=== PATIENT | male | born 1985 | race Caucasian/White ===

== ENCOUNTER 2016-05-05 11:53 | Emergency (ER) | payer BC ==
[~2016-05-05] VITALS: Wt 89.0 kg
--- NOTE | 2016-05-05 14:08 | ERD ---
ER Documentation Chief Complaint Date/Time DATE: 05/05/16 TIME: 14:06 Chief Complaint DIFFICULTY BREATHING SINCE LAST NIGHT AND BILATERAL RIB AREA. NO TRAUMA HPI This a 31-year-old male who presents to the emergency department complaining of shortness of breath and difficulty breathing for the past several days. Patient states he also has pain in his ribs. 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 Patient states he has had an occasional cough. Denies any fevers or chills. ROS All systems reviewed and are negative except as per history of present illness. Medications Home Meds Active Scripts Cyclobenzaprine Hcl* (Cyclobenzaprine Hcl*) 10 Mg Tablet, 10 MG PO QHS, #7 TAB Prov:RAYMUNDO BRUCE PA-C 05/05/16 PMhx/Soc History of Surgery: No Anesthesia Reaction: No Hx Neurological Disorder: No Hx Respiratory Disorders: No Hx Cardiac Disorders: No Hx Psychiatric Problems: No Hx Miscellaneous Medical Probl: Yes (IBS) Hx Alcohol Use: No Hx Substance Use: No Hx Tobacco Use: No Smoking Status: Never smoker Physical Exam Vitals Vital Signs Date Time Temp Pulse Resp B/P Pulse Ox O2 Delivery O2 Flow Rate FiO2 05/05/16 11:58 98.5 91 20 131/70 97 Physical Exam Const: Talkative, no acute distress Head: Atraumatic Eyes: Normal Conjunctiva ENT: Normal External Ears, Nose and Mouth. Neck: Full range of motion..~ No meningismus. Resp: Clear to auscultation bilaterally. No absent breath sounds. No wheezing. Mild tenderness to palpation with chest compression. Cardio: Regular rate and rhythm, no murmurs Abd: Soft, non tender, non distended. Normal bowel sounds Skin: No petechiae or rashes Back: No midline or flank tenderness Ext: No cyanosis, or edema Neur: Awake and alert Psych: Normal Mood and Affect Results 24 hrs Current Medications Medications (Trade) Dose Ordered Sig/Dulce Maria Route PRN Reason Start Time Stop Time Status Last Admin Dose Admin Ibuprofen (Motrin) 800 mg ONCE ONCE PO 05/05/16 14:30 05/05/16 14:31 DC 05/05/16 14:15 DIAGNOSTIC IMAGING REPORT Patient: SHEIKH GONSALES : 1985 Age: 31 Sex: M MR #: [id number] DOS: 05/05/16 0000 Ordering MD: RAYMUNDO BRUCE PA-C Location: [facility] Room/Bed: PROCEDURE: XR Chest. CLINICAL INDICATION: Cough/shortness of breath TECHNIQUE: Chest PA. COMPARISON: No comparison available. FINDINGS: The mediastinal structures are unremarkable. The heart is normal in size and configuration. The pulmonary vascularity is normal. The lung joseph are unremarkable. No consolidation is identified. The pleural spaces are unremarkable. The axial skeleton is unremarkable. IMPRESSION: No active intrathoracic disease. RPTAT: [facility] .José Whitfield MD, MD Date Time Electronically viewed and signed by .José Whitfield MD, on 05/05/2016 14:07 .B/ CC: RAYMUNDO BRUCE PA-C Procedures/MDM This a 31-year-old male who presents to the emergency department today complaining of shortness of breath and difficulty breathing for the past 5 days as well as pain in his ribs. Obtained a chest x-ray Chest x-ray is negative. There is no consolidation. Pleural spaces are unremarkable. Low suspicion for PE, abscess, pneumothorax, pneumonia Patient was given Motrin here in the emergency department. Patient was concerned because he had not had anything to eat and was given food here in the emergency department. Prior to discharge patient was stating that he was having some paraspinal back pain. States he went to a chiropractor 1 week ago. States he is unsure if he had an adjustment for his mid back are only his neck. Patient is very talkative in the exam room. Because patient was complaining of pain I offered to obtain images of the patient's spine however patient has declined at this time. Patient did not want a prescription for Naprosyn stating that he sometimes takes omeprazole. I offered to give the patient a muscle relaxant and patient has agreed after asking what the ingredients were. Again patient is very talkative in the exam room. He is in no acute distress. He is not tachycardic. His oxygen saturation is 97%. I do not feel that the patient requires further laboratory workup or imaging at this time. Patient has back pain with shortness of breath of uncertain etiology. He was instructed to follow-up with his primary care physician for further evaluation and management. Patient understood. At this time the patient is stable for discharge and outpatient management. Patient should follow up with their PCP in the next 1-2 days. They may return to the emergency department sooner for any persistent or worsening of symptoms. Patient understood and agreed with the plan. Departure Diagnosis: Primary Impression: SOB (shortness of breath) Condition: Fair RAYMUNDO BRUCE PA-C May 05, 2016 14:08
[2016-05-05] MEDS ORDERED: IBUPROFEN 800 MG TAB PO ONE (14:30)
[2016-05-05] MEDS ORDERED: CYCL-319 PO (14:47)
== END 2016-05-05 14:50 | disposition home or self-care (01) ==
LOC: FTE 11:53
DX: R06.02 Shortness of breath (principal)
CPT/HCPCS: 71010